=== PATIENT | male | born 1985 | race Caucasian/White ===

== ENCOUNTER 2025-01-14 12:16 | Emergency (ER) | payer BC, SELFPAY ==
[2025-01-14 12:18] VITALS: BP 134/93
--- NOTE | 2025-01-14 13:04 | ED.GENMED ---
History of Present Illness
General
Chief Complaint: Abdominal Pain
Source: patient
Exam Limitations: none
Time Seen by Provider: 01/14/25 12:51
History of Present Illness
History of Present Illness:
39yoM with no significant past medical history presenting for evaluation of abdominal pain. He reports intermittent sharp pains in his suprapubic/pelvic region over the past several months. He will get a sharp pain lasting a few seconds primarily
with position changes. The pain will radiate to his rectum. He felt the urge to urinate while in bed 3-4 days ago but went back to bed. He eventually woke up again and urinated. He has been having a constant dull pain in his suprapubic region
since then. He continues to have intermittent sharp radiating pains to the rectum. He also reports feeling the urge to have bowel movements throughout the day and typically has 1 BM daily. He is otherwise asymptomatic and denies any fevers,
chills, nausea, vomiting, dysuria, testicular pain, scrotal swelling. No previous abdominal surgeries. Of note, patient's father has Crohn's disease.
Phy Exam
General Physical Exam
General Presentation: well appearing and no apparent distress
General age: appears stated age
General Skin: warm and dry
General Habitus: normal
General Mental: alert
General Hydration: appears well hydrated
ENT Exam
ENT Exam: normocephalic
Pulmonary Exam
Pulmonary Exam: no respiratory distress
Gastrointestinal Exam
Gastrointestinal Exam: non tender, soft, non distended and other (+Tenderness in the suprapubic region. Abdomen soft, non-distended. No rebound or guarding. )
Neurological Exam
Neurological Exam: alert
[place] Coma Scale
Eye Opening: Spontaneous
Verbal Response: Oriented
Motor Response: Obeys Commands
GCS Total Score: 15
Skin Exam
Skin Exam: normal color and warm/dry
Psychiatric Exam
Psychiatric Exam: normal mood/affect
Course
Orders/Labs/Results
Orders:
Orders
01/14/25 13:01
Iohexol [Omnipaque] See Protocol PO NOW STA
01/14/25 13:02
CT Abd/pel W Iv And Oral Contr Urgent
Comment:
Reason For Exam: suprapubic pain
01/14/25 13:27
Complete Blood Count/With Diff Urgent
01/14/25 13:56
Basic Metabolic Panel Urgent
Lipase Urgent
01/14/25 14:01
Urinalysis Reflex To Culture Urgent
Date Specimen was Collected: 01/14/25
Time Specimen was Collected: 13:57
01/14/25 14:41
LFT [Vdkva-[id number]] Urgent
Potassium Urgent
Abnormal Lab Results
01/14/25 01/14/25 01/14/25
13:27 13:56 14:41
MPV 10.6 H fL
(7.4-10.4)
Glucose 106 H mg/dl
(70-99)
AST 146 H U/L
(17-59)
ALT 324 H U/L
(0-50)
Lipase 745 H U/L
(23-300)
01/14/25 13:27
01/14/25 14:41
Vital Signs
Initial and Last Documented VS:
Initial Vital Signs
Temp Pulse Resp BP Pulse Ox
97.8 F 81 20 134/93 99
01/14/25 12:18 01/14/25 12:18 01/14/25 12:18 01/14/25 12:18 01/14/25 12:18
Last Documented Vital Signs
Temp Pulse Resp BP Pulse Ox
97.8 F 82 16 136/90 99
01/14/25 12:18 01/14/25 16:32 01/14/25 16:32 01/14/25 16:32 01/14/25 16:32
MDM/Problems Addressed
Differential Diagnosis Includes:
39yoM here with suprapubic discomfort. Intermittent sharp pain x several months that radiates to the rectum. More constant x 3-4 days. Sent here by urgent care. VSS. He is well-appearing in no acute distress. No signs of peritonitis on abdominal
exam. Differential diagnosis includes but is not limited to: Diverticulitis, appendicitis, constipation, UTI, nonspecific abdominal pain
Initial ED plan: Check abdominal labs, UA, and CT abdomen with IV/p.o. contrast.
*Critical Care Note
Total Time (30-74mins, 75-104mins- exclusive of procedures): Not Applicable
Update Note
Update Note:
Labs reveal a mild transaminitis with AST 146 and ALT 324. Total bilirubin is normal. Lipase also elevated at 745 which is <3x ULN. Unclear significance of these findings as he has no pain in the upper abdomen and liver, gallbladder, and pancreas
appear normal on CT. Only finding on CT is a questionable mild acute uncomplicated left-sided colitis. No fever or leukocytosis present to warrant antibiotics. No indication for hospitalization at this time. He was encouraged to follow-up with
gastroenterology. He does have a family history of Crohn's disease in his father. ED return precautions discussed. Patient in agreement with plan and was discharged in stable condition.
ED Attending Note
-
Portions of this chart may have been created with voice recognition software.� Occasional wrong word or��sound alike� substitutions may have occurred due to the inherent limitations of voice recognition software.
Discharge Plan
Departure
Patient Disposition: Home (Routine Discharge)
Date of Disposition: 01/14/25
Time of Disposition: 16:23
Patient with high blood pressure during this ER visit?: No
Discharge Problem:
Abdominal pain, suprapubic, Transaminitis
Instructions: Abdominal Pain
Referrals:
Shannon Rice MD [Active] -
UNKNOWN - PT DOES,NOT KNOW [Family Provider] -
Activity Restrictions/Additional Instructions:
Please call Friday to schedule a follow-up with gastroenterology. You should also see your family doctor later this month as previously scheduled.
Return to the ER with any new or worsening symptoms including fevers.
Interventions
Interventions:
*Risk Screen - Suicide Last Done: 01/14/25 13:05
*General Assessment Last Done: 01/14/25 12:18
*Neglect/Abuse Screening Last Done: 01/14/25 13:05
*ED- Fall Risk Assessment Last Done: 01/14/25 13:05
*ED COVID-19 Vaccine History Last Done: 01/14/25 13:05
*Nursing Disposition Last Done: 01/14/25 16:32
PK-Fqirsz-Utcdfaevfs Assessment Last Done: 01/14/25 13:05
Discharge Date and Time
Discharge Date/Time: 01/14/25 16:33
Print Language: [id number]
[2025-01-14 13:05] VITALS: BMI 28.2
[2025-01-14 13:35] LABS: % Basophils 0.5 % (0-2); % Eosinophils 1.3 % (0-6); % Immature Granulocytes 0.2 % (0-0.5); % Lymphocytes 28.1 % (20.5-51.1); % Monocytes 6.9 % (1.7-9.3); Absolute Eosinophils 0.1 10^3/uL (0-0.7); Absolute Lymphocytes 1.7 10^3/uL (1.2-3.4); Absolute Monocytes 0.4 10^3/uL (0.1-0.6); Absolute Neutrophils 3.7 10^3/uL (1.4-6.5); Hematocrit 43.8 % (39.0-52.0); Mean Corp Hgb Conc. 36.5 g/dL (33.0-37.0); Mean Corpuscular Hgb 30.6 pg (27.0-31.0); Mean Corpuscular Volume 83.7 fL (80.0-94.0); Mean Platelet Volume 10.6 fL (7.4-10.4); Nucleated Red Blood Cells % 0 % (-); Platelet Count 215 10^3/uL (130-400); Red Blood Cell Count 5.23 10^6/uL (4.70-6.10); Red Cell Dist. Width 12.3 % (11.5-14.5); White Blood Cell Count 5.9 10^3/uL (4.8-10.8)
[2025-01-14] MEDS: OMNIPAQUE 50 ML PO (13:36)
[2025-01-14 14:16] LABS: Urine Albumin Negative (Neg - Trace); Urine Bilirubin Negative (Negative); Urine Character Clear (Clear); Urine Color Yellow; Urine Glucose Negative (Negative); Urine Ketone Negative (Negative); Urine Leukocyte Negative (Negative); Urine Nitrite Negative (Negative); Urine Occult Blood Negative (Negative); Urine Urobilinogen Negative (Neg - 1+)
[2025-01-14 14:27] LABS: Blood Urea Nitrogen 20 mg/dl (9-20); Calcium 9.8 mg/dl (8.4-10.2); Carbon Dioxide 23 mmol/L (22-30); Chloride 104 mmol/L (98-107); Estimated Creatinine Clearance 103 ml/min; Glucose 106 mg/dl (70-99); Lipase 745 U/L (23-300); Sodium 137 mmol/L (135-145); eGFR > 60.00
[2025-01-14 15:08] LABS: ALT (SGPT) 324 U/L (0-50); AST (SGOT) 146 U/L (17-59); Albumin 4.5 g/dl (3.5-5.0); Alkaline Phosphatase 51 U/L (38-126); Direct Bilirubin 0.2 mg/dl (0.0-0.4); Total Protein 7.3 g/dl (6.3-8.2)
[2025-01-14 16:32] VITALS: BP 136/90
== END 2025-01-14 16:33 | disposition home or self-care (01) ==
LOC: EMR 12:16
PROVIDERS: Physician Assistant; EMERGENCY PHYSICIAN Student in an Organized Health Care Education/Training Program
DX: R74.01 Elevation of levels of liver transaminase levels (principal); R10.2 Pelvic and perineal pain
CPT/HCPCS: 99285; 74177; 80048; 80076; 81003; 83690; 84132; 85025; Q9967